=== PATIENT | male | born 1975 | race Caucasian/White ===

== ENCOUNTER 2017-01-09 22:44 | Inpatient (IN) | payer OTHER ==
[~2017-01-09] VITALS: Ht 154.9 cm; Wt 92.0 kg
[2017-01-09 22:49] VITALS: BP 154/96; PULSE 72; RESP 23; TEMP 97.7; O2SAT 99
[2017-01-09] MEDS ORDERED: SODIUM CHLOR 0.9% 1000 ML INJ 1,000 ML IV SCH (22:52)
[2017-01-09 22:56] VITALS: BP 154/96; PULSE 74; RESP 23; TEMP 97.7; O2SAT 100
[2017-01-09 22:59] VITALS: RESP 23; O2SAT 100
[2017-01-09] MEDS ORDERED: SODIUM CHLORIDE 0.9% FLUSH 10 ML FLUSH IVF PRN (23:00)
[2017-01-09] MEDS ORDERED: ceFAZolin 2 GM PREMIX 50 ML IV ONE (23:00)
[2017-01-09] MEDS ORDERED: ONDANSETRON HCL 4 MG/2 ML VIAL IVP ONE (23:00)
[2017-01-09 23:09] LABS: AUTOMATED NEUTROPHIL # 4.7 TH/MM3 (1.8-7.7); BASOPHIL # 0.1 TH/MM3 (0-0.2); BASOPHIL % 0.7 % (0.0-2.0); EOSINOPHIL # 0.9 TH/MM3 (0-0.4); HEMATOCRIT 44.2 % (39.0-51.0); HEMO FLAGS DIFF FINAL; LYMPH % 42.9 % (9.0-44.0); LYMPHOCYTE # 4.9 TH/MM3 (1.0-4.8); MEAN CORPUSCULAR HEMOGLOBIN 30.1 PG (27.0-34.0); MEAN CORPUSCULAR HGB CONC 33.4 % (32.0-36.0); MONO % 7.3 % (0.0-8.0); NEUT % 41.1 % (16.0-70.0); PLATELET COUNT 250 TH/MM3 (150-450); RED BLOOD COUNT 4.92 MIL/MM3 (4.50-5.90); RED CELL DISTRIBUTION WIDTH 12.6 % (11.6-17.2); WHITE BLOOD COUNT 11.3 TH/MM3 (4.0-11.0)
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
[2017-01-09] MEDS ORDERED: LIDOCAINE 2%/EPINEPHrine 1:100,000 30ML MDV INFIL ONE (23:30)
[2017-01-09 23:33] LABS: BICARBONATE 24.1 MEQ/L (21.0-32.0); POTASSIUM 3.4 MEQ/L (3.5-5.1)
[2017-01-09 23:45] VITALS: BP 150/84; PULSE 83; RESP 24; O2SAT 100
[2017-01-10] VITALS (13 sets, daily range): BP systolic 141–175; BP diastolic 74–98; PULSE 60–100; RESP 16–27; TEMP 98.1–98.8; O2SAT 96–100
[2017-01-10] MEDS ORDERED: IOHEXOL 350 MG/ML 10 ML VIAL (for RAD DIAG) IVCONTRAST ONE (00:07)
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
[2017-01-10] MEDS: DIAZEPAM 2 MG TAB PO SCH ×4 (01:15→21:01)
[2017-01-10] MEDS ORDERED: ONDANSETRON HCL 4 MG/2 ML VIAL IV PRN (01:15)
[2017-01-10] MEDS ORDERED: MAGNESIUM HYDROXIDE SUSP 30 ML CUP PO PRN (01:15)
[2017-01-10] MEDS ORDERED: CHLORHEXIDINE GLUCONATE 2 % 1 PACK (2 CLOTHS) TOP PRN (01:15)
[2017-01-10] MEDS ORDERED: SODIUM CHLORIDE 0.9% FLUSH 10 ML FLUSH IV FLUSH PRN (01:15)
[2017-01-10] MEDS ORDERED: MISCELLANEOUS NURSING INFORMATION XX SCH (01:15)
[2017-01-10] MEDS: LACTATED RINGER'S 1000 ML INJ 1,000 ML IV SCH ×3 (01:34→18:20)
[2017-01-10] MEDS: HYDROmorphone HCL PF 1 MG/ML VIAL IV PUSH PRN ×5 (01:35→18:59)
[2017-01-10] MEDS: CHLORHEXIDINE GLUCONATE 2 % 1 PACK (2 CLOTHS) TOP SCH (04:00)
[2017-01-10 05:43] LABS: REVIEW FLAG FINAL
[2017-01-10] MEDS ORDERED: POTASSIUM CHLORIDE 20 MEQ CONTROLLED RELEASE TAB PO ONE (09:45)
[2017-01-10] MEDS: FAMOTIDINE 20 MG TAB PO SCH ×2 (09:59→21:01)
[2017-01-10] MEDS: DOCUSATE SODIUM 100 MG CAP PO SCH ×2 (09:59→21:01)
[2017-01-10] MEDS: LIDOCAINE HCL 5% PATCH T-DERMAL SCH (09:59)
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
[2017-01-10 11:16] LABS: HEMATOCRIT 41.6 % (39.0-51.0); REVIEW FLAG FINAL
[2017-01-10] MEDS ORDERED: MAGN400S PO (12:19)
[2017-01-10] MEDS ORDERED: DOCU1CAP39 PO (12:19)
[2017-01-10] MEDS: BACITRACIN TOP OINT 15 GM TUBE TOPICAL SCH ×2 (14:41→21:00)
[2017-01-10 17:32] LABS: HEMATOCRIT 40.5 % (39.0-51.0); REVIEW FLAG FINAL
[2017-01-10] MEDS: REMOVE OLD LIDOCAINE PATCH T-DERMAL SCH (21:00)
[2017-01-11] VITALS (10 sets, daily range): BP systolic 131–165; BP diastolic 72–100; PULSE 65–96; RESP 15–20; TEMP 98–101.3; O2SAT 94–97
[2017-01-11] MEDS: HYDROmorphone HCL PF 1 MG/ML VIAL IV PUSH PRN (00:25)
[2017-01-11] MEDS: CHLORHEXIDINE GLUCONATE 2 % 1 PACK (2 CLOTHS) TOP SCH (00:33)
[2017-01-11] MEDS: LACTATED RINGER'S 1000 ML INJ 1,000 ML IV SCH ×2 (01:02→08:51)
[2017-01-11] MEDS: DIAZEPAM 2 MG TAB PO SCH ×3 (05:59→22:12)
--- NOTE | 2017-01-11 06:20 | RADRPT ---
EXAM DATE/TIME: 01/11/2017 05:34 [facility] COMPARISON: CHEST SINGLE AP, January 10, 2017, 10:37. INDICATIONS : Evaluate for pneumothorax. MEDICAL HISTORY : None. SURGICAL HISTORY : None. ENCOUNTER: Subsequent ACUITY: 3 days PAIN SCORE: 9/10 LOCATION: Left chest FINDINGS: Multiple left rib fractures are again noted. I don't see a pneumothorax. The chest wall emphysema is decreasing. There is mild consolidation developing of the left lung base. I don't see a large effusio n/hemothorax. Right lung remains clear. Heart size stable, within normal limits. CONCLUSION: 1. Left base consolidation developing. 2. Multiple left rib fractures are again seen. No pneumothorax demonstrated. Samuel Chisholm MD on January 11, 2017 at 6:17 Board Certified Radiologist. This report was verified electronically.
[2017-01-11 07:13] LABS: AUTOMATED NEUTROPHIL # 8.3 TH/MM3 (1.8-7.7); BASOPHIL % 0.2 % (0.0-2.0); EOSINOPHIL % 0.3 % (0.0-4.0); HEMO FLAGS DIFF FINAL; LYMPH % 9.1 % (9.0-44.0); MEAN CELL VOLUME 89.1 FL (80.0-100.0); MEAN CORPUSCULAR HGB CONC 34.7 % (32.0-36.0); MONO % 14.7 % (0.0-8.0); NEUT % 75.7 % (16.0-70.0); PLATELET COUNT 153 TH/MM3 (150-450); RED BLOOD COUNT 4.38 MIL/MM3 (4.50-5.90); RED CELL DISTRIBUTION WIDTH 12.7 % (11.6-17.2); WHITE BLOOD COUNT 10.9 TH/MM3 (4.0-11.0)
[2017-01-11 07:35] LABS: BICARBONATE 27.4 MEQ/L (21.0-32.0); POTASSIUM 3.8 MEQ/L (3.5-5.1)
[2017-01-11] MEDS: LIDOCAINE HCL 5% PATCH T-DERMAL SCH (08:51)
[2017-01-11] MEDS: DOCUSATE SODIUM 100 MG CAP PO SCH ×2 (08:51→20:00)
[2017-01-11] MEDS: BACITRACIN TOP OINT 15 GM TUBE TOPICAL SCH ×2 (08:51→20:02)
[2017-01-11] MEDS: FAMOTIDINE 20 MG TAB PO SCH ×2 (08:51→20:00)
--- NOTE | 2017-01-11 11:00 | HHI.CCPN ---
Subjective 24 Hour Review/Hospital Course 01/11/17 Pain is controlled, nausea resolved. No pneumothorax on chest x-ray and hemothorax remains minimal. Hemoglobin is stable. Will transfer to floor today. Objective Vital Signs Date Time Temp Pulse Resp B/P (MAP) Pulse Ox O2 Delivery O2 Flow Rate FiO2 01/11/17 10:00 91 01/11/17 08:00 98.5 15 139/86 (103) 97 01/11/17 07:00 Nasal Cannula 2.00 Intake and Output 01/11/17 01/11/17 01/12/17 08:00 16:00 00:00 Intake Total 1640 ml 1000 ml Output Total 3000 ml Balance -1360 ml 1000 ml Result Diagram: 01/11/17 0535 01/11/17 0535 Imaging Last 24 hours Impressions Chest X-Ray 01/11/17 0600 Signed Impressions: Service Date/Time: Wednesday, January 11, 2017 05:34 - CONCLUSION: 1. Left base consolidation developing. 2. Multiple left rib fractures are again seen. No pneumothorax demonstrated. Samuel Chisholm MD Exam PROCESS CONTROL TECHNICIAN Alert and oriented, no acute distress Hemodynamic/Cardiac Regular rate and rhythm, stable Pulmonary/Respiratory Clear to auscultation bilaterally, tender left chest wall. Chest x-ray remained stable Abdomen/GI Nutrition Soft, appropriately tender, nondistended Renal/I&O Adequate urine output Hematologic Stable Assessment and Plan Plan Grade 4 splenic laceration remains dynamically stable Transfer to floor today will require continued observation due to high risk of failure of nonoperative management Chest x-ray remained stable with no indication for chest tube placement at this time Continue aggressive pulmonary toilet and pain control Mak Hall MD Jan 11, 2017 11:00
[2017-01-11] MEDS: REMOVE OLD LIDOCAINE PATCH T-DERMAL SCH (20:03)
[2017-01-12] MEDS: LACTATED RINGER'S 1000 ML INJ 1,000 ML IV SCH ×2 (01:02→22:53)
[2017-01-12] MEDS: CHLORHEXIDINE GLUCONATE 2 % 1 PACK (2 CLOTHS) TOP SCH (04:00)
[2017-01-12] MEDS: DIAZEPAM 2 MG TAB PO SCH ×3 (05:55→21:07)
--- NOTE | 2017-01-12 06:20 | RADRPT ---
EXAM DATE/TIME: 01/12/2017 05:15 [facility] COMPARISON: CHEST SINGLE AP, January 11, 2017, 5:34. INDICATIONS : Short of breath. MEDICAL HISTORY : None. SURGICAL HISTORY : None. ENCOUNTER: Subsequent ACUITY: 3 days PAIN SCORE: 0/10 LOCATION: Bilateral chest FINDINGS: Slight progression of left lower lobe airspace disease and probable small pleural effusion. Cardiomed iastinal contours are stable. Redemonstration of multiple left sided rib fractures. CONCLUSION: 1. Slightly more prominent left lower lobe airspace disease and small pleural effusion. 2. Redemonstration of multiple left-sided rib fractures. No significant pneumothorax. Nakul Licona MD on January 12, 2017 at 6:17 Board Certified Radiologist. This report was verified electronically.
[2017-01-12 07:42] VITALS: BP 134/84; PULSE 84; RESP 17; TEMP 99.4; O2SAT 95
[2017-01-12 08:16] LABS: AUTOMATED NEUTROPHIL # 7.4 TH/MM3 (1.8-7.7); BASOPHIL # 0.2 TH/MM3 (0-0.2); BASOPHIL % 2.1 % (0.0-2.0); EOSINOPHIL % 0.4 % (0.0-4.0); HEMATOCRIT 40.4 % (39.0-51.0); HEMO FLAGS DIFF FINAL; LYMPH % 12.7 % (9.0-44.0); LYMPHOCYTE # 1.3 TH/MM3 (1.0-4.8); MEAN CELL VOLUME 88.5 FL (80.0-100.0); MEAN CORPUSCULAR HEMOGLOBIN 31.3 PG (27.0-34.0); MEAN CORPUSCULAR HGB CONC 35.3 % (32.0-36.0); MONO % 12.6 % (0.0-8.0); NEUT % 72.2 % (16.0-70.0); PLATELET COUNT 149 TH/MM3 (150-450); RED BLOOD COUNT 4.57 MIL/MM3 (4.50-5.90); RED CELL DISTRIBUTION WIDTH 12.7 % (11.6-17.2); WHITE BLOOD COUNT 10.3 TH/MM3 (4.0-11.0)
[2017-01-12] MEDS: LIDOCAINE HCL 5% PATCH T-DERMAL SCH (08:39)
[2017-01-12 08:40] LABS: ANION GAP 6 MEQ/L (5-15); AST (GOT) 18 U/L (15-37); BICARBONATE 29.1 MEQ/L (21.0-32.0); BLOOD UREA NITROGEN 10 MG/DL (7-18); CHLORIDE 100 MEQ/L (98-107); GLOMERULAR FILTRATION RATE 123 ML/MIN (>89); POTASSIUM 3.9 MEQ/L (3.5-5.1); SODIUM (NA) 135 MEQ/L (136-145)
[2017-01-12 08:41] LABS: ALT (GPT) 28 U/L (12-78)
[2017-01-12] MEDS: DOCUSATE SODIUM 100 MG CAP PO SCH ×2 (08:41→21:07)
[2017-01-12] MEDS: FAMOTIDINE 20 MG TAB PO SCH ×2 (08:42→21:07)
[2017-01-12] MEDS: BACITRACIN TOP OINT 15 GM TUBE TOPICAL SCH ×2 (08:42→21:13)
[2017-01-12] MEDS: LACTULOSE SYRUP 20 GM/30 ML CUP PO SCH (08:42)
[2017-01-12 08:43] LABS: ALKALINE PHOSPHATASE 59 U/L (45-117)
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
[2017-01-12 11:49] VITALS: BP 135/95; PULSE 104; RESP 17; TEMP 99.3; O2SAT 96
[2017-01-12] MEDS: HYDROmorphone HCL PF 1 MG/ML VIAL IV PUSH PRN (12:28)
[2017-01-12 15:52] VITALS: BP 136/94; PULSE 119; RESP 17; TEMP 99.5; O2SAT 92
[2017-01-12 20:00] VITALS: BP 130/91; PULSE 73; RESP 18; TEMP 99.2; O2SAT 98
[2017-01-12] MEDS: REMOVE OLD LIDOCAINE PATCH T-DERMAL SCH (21:13)
[2017-01-13 00:05] VITALS: BP 135/83; PULSE 81; RESP 18; TEMP 98.8; O2SAT 99
[2017-01-13] MEDS: CHLORHEXIDINE GLUCONATE 2 % 1 PACK (2 CLOTHS) TOP SCH (01:55)
[2017-01-13] MEDS: DIAZEPAM 2 MG TAB PO SCH ×2 (05:46→14:00)
[2017-01-13 06:06] LABS: AUTOMATED NEUTROPHIL # 5.1 TH/MM3 (1.8-7.7); BASOPHIL % 0.4 % (0.0-2.0); EOSINOPHIL # 0.2 TH/MM3 (0-0.4); HEMATOCRIT 40.3 % (39.0-51.0); HEMO FLAGS DIFF FINAL; LYMPH % 17.4 % (9.0-44.0); LYMPHOCYTE # 1.4 TH/MM3 (1.0-4.8); MEAN CELL VOLUME 88.9 FL (80.0-100.0); MEAN CORPUSCULAR HEMOGLOBIN 30.5 PG (27.0-34.0); MEAN CORPUSCULAR HGB CONC 34.3 % (32.0-36.0); MONO % 14.7 % (0.0-8.0); NEUT % 64.5 % (16.0-70.0); PLATELET COUNT 174 TH/MM3 (150-450); RED BLOOD COUNT 4.54 MIL/MM3 (4.50-5.90); RED CELL DISTRIBUTION WIDTH 12.8 % (11.6-17.2)
[2017-01-13 06:33] LABS: ANION GAP 9 MEQ/L (5-15); AST (GOT) 24 U/L (15-37); BICARBONATE 27.5 MEQ/L (21.0-32.0); BLOOD UREA NITROGEN 12 MG/DL (7-18); CHLORIDE 98 MEQ/L (98-107); GLOMERULAR FILTRATION RATE 136 ML/MIN (>89); POTASSIUM 3.8 MEQ/L (3.5-5.1); SODIUM (NA) 134 MEQ/L (136-145)
[2017-01-13 06:34] LABS: ALT (GPT) 38 U/L (12-78)
[2017-01-13 06:36] LABS: ALKALINE PHOSPHATASE 63 U/L (45-117); TOTAL BILIRUBIN ADULT 1.1 MG/DL (0.2-1.0)
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
[2017-01-13] MEDS ORDERED: WALKER WHEELS/F1 MIS (07:30)
[2017-01-13 08:00] VITALS: BP 126/78; PULSE 95; RESP 18; TEMP 98.1; O2SAT 95
[2017-01-13] MEDS: DOCUSATE SODIUM 100 MG CAP PO SCH (08:27)
[2017-01-13] MEDS: FAMOTIDINE 20 MG TAB PO SCH (08:27)
[2017-01-13] MEDS: LACTULOSE SYRUP 20 GM/30 ML CUP PO SCH (08:27)
[2017-01-13] MEDS: LIDOCAINE HCL 5% PATCH T-DERMAL SCH (08:28)
[2017-01-13] MEDS: LACTATED RINGER'S 1000 ML INJ 1,000 ML IV SCH (09:02)
[2017-01-13] MEDS: BACITRACIN TOP OINT 15 GM TUBE TOPICAL SCH (09:25)
[2017-01-13 11:51] VITALS: BP 137/94; PULSE 84; RESP 18; TEMP 99.2; O2SAT 96
[2017-01-13] MEDS ORDERED: PERC5TAB12 PO (11:52)
[2017-01-13] MEDS ORDERED: ROBA500T PO (11:52)
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
== END 2017-01-13 16:10 | disposition home or self-care (01) | DRG 964 ==
LOC: NEPE 22:44 → NEDA 01-10 00:45 → N03B 01-10 03:56 → N06A 01-11 11:03
PROVIDERS: ADMIT Surgery; ATTEND Surgery
PROC: 0HQ1XZZ Repair Face Skin, External Approach (ICD-10-PCS; principal; 2017-01-09)
DX: S27.2XXA Traumatic hemopneumothorax, initial encounter (principal); S22.42XA Multiple fractures of ribs, left side, initial encounter for closed fracture; S37.812A Contusion of adrenal gland, initial encounter; S36.039A Unspecified laceration of spleen, initial encounter; S01.81XA Laceration without foreign body of other part of head, initial encounter; S00.81XA Abrasion of other part of head, initial encounter; V29.88XA Motorcycle rider (driver) (passenger) injured in other specified transport accidents, initial encounter; Y92.410 Unspecified street and highway as the place of occurrence of the external cause
CPT/HCPCS: 12013; 51702; 70450; 71010; 71260; 72125; 74177; 80048; 80053; 80307; 85014; 85018; 85025; 87641; 94150; 94640; 94667; 94668; 96365; 96375; J0690; J1170; J2405; J7030; J7120; Q9967

== ENCOUNTER 2018-04-18 00:11 | Inpatient (IN) ==
[2018-04-18] MEDS ORDERED: Morphine Inj 4 MG/ML Vial IV.PUSH ONE (00:27)
[2018-04-18] MEDS ORDERED: ceFAZolin 2 GM Premix Inj 2 GM/50 ML PIGGYBACK IV.SIG ONE (00:27)
[2018-04-18] MEDS ORDERED: Diphtheria/Tetanus/Pertussis Vaccine Inj 0.5 ML Syringe IM ONE (00:27)
[2018-04-18] MEDS ORDERED: Sod Chloride 0.9% Inj 1,000 ML IV.CONT SCH (00:30)
[2018-04-18 00:55] LABS: Baso % (Auto) 0.4 % (0.0-2.0); Eos # (Auto) 0.7 th/mm3 (0.0-0.4); Eos % (Auto) 7.6 % (0.0-4.0); Hematocrit 44.1 % (39.0-51.0); Hemoglobin 15.4 gm/dL (13.0-17.0); Lymph # (Auto) 2.1 th/mm3 (1.0-4.8); Lymph % (Auto) 21.9 % (9.0-44.0); Mean Corpuscular HGB Conc 34.9 % (32.0-36.0); Mean Corpuscular Volume 88.9 fL (80.0-100.0); Mean Platelet Volume 8.6 fL (7.0-11.0); Mono # (Auto) 0.6 th/mm3 (0.0-0.9); Mono % (Auto) 6.6 % (0.0-8.0); Neut # (Auto) 6.2 th/mm3 (1.8-7.7); Neut % (Auto) 63.5 % (16.0-70.0); Platelet Count 248 th/mm3 (150-450); Red Blood Count 4.96 mil/mm3 (4.50-5.90); White Blood Count 9.7 th/mm3 (4.0-11.0)
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
[2018-04-18 01:04] LABS: Activated Partial Thrombo Time 23.6 sec (23.4-31.7)
[2018-04-18 01:07] LABS: Calcium 8.2 mg/dL (8.5-10.1); Carbon Dioxide 25.3 meq/L (21.0-32.0); Potassium 3.8 meq/L (3.5-5.1)
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
[2018-04-18] MEDS ORDERED: ceFAZolin 1 GM Premix Inj 2 GM/100 ML PIGGYBACK IV.SIG ONE (02:27)
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
[2018-04-18 03:47] LABS: Bilirubin,Urine Negative (Negative); Clarity,Urine Clear (Clear); Color,Urine Straw (Yellw/Straw); Glucose,Urine (UA) Negative (Negative); Hyaline Casts,Urine 3 /lpf (0-3); Leukocyte Esterase,Urine Negative (Negative); Mucus,Urine Few /lpf (Occasional); Nitrite,Urine Negative (Negative); Specific Gravity,Urine 1.008 (1.002-1.035); Squamous Epithelial Cell,Urine <1 /hpf (0-5)
[2018-04-18 03:50] LABS: Amphetamine Screen,Urine Neg (Neg); Barbiturate Screen,Urine Neg (Neg); Cannabinoid Screen,Urine Pos (Neg); Cocaine Screen,Urine Neg (Neg)
[2018-04-18 04:00] LABS: Opiate Screen,Urine Neg (Neg)
[2018-04-18] MEDS ORDERED: LORazepam 1 MG Tablet PO PRN (04:01)
[2018-04-18] MEDS ORDERED: Haloperidol Inj 5 MG/ML Ampul IV.PUSH PRN (04:01)
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
[2018-04-18] MEDS ORDERED: Bisacodyl 10 MG Supp RECTAL PRN (04:02)
[2018-04-18] MEDS ORDERED: Acetaminophen 325 MG Tablet PO PRN (04:02)
[2018-04-18] MEDS: Sod Chloride 0.9% Inj 1,000 ML IV.CONT SCH ×2 (04:58→19:33)
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
[2018-04-18] MEDS ORDERED: Chlorhexidine Gluconate 2% 1 Pack (2 Cloths) TOPICAL ONE (09:01)
[2018-04-18] MEDS ORDERED: Metoprolol Tartrate 25 MG Tablet PO ONE (09:01)
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
[2018-04-18] MEDS ORDERED: Sodium Chlor 0.9% Inj 500 ML IV.SIG ONE (10:00)
[2018-04-18] MEDS ORDERED: Sugammadex Inj 200 MG/2 ML Vial IV.PUSH ONE (10:23)
[2018-04-18] MEDS ORDERED: Tobramycin Sulfate 1,200 MG Vial (for ortho/sterile core) OTHER ONE (10:59)
[2018-04-18] MEDS ORDERED: Post-op Orders (for Pharmacy) OTHER STA (11:44)
[2018-04-18] MEDS ORDERED: Morphine Inj 4 MG/ML Vial IV.PUSH PRN (11:44)
--- NOTE | 2018-04-18 11:55 | P.OP ---
- Preoperative Diagnosis (1) Fracture of radial head, left, closed (2) Open fracture of olecranon process of left ulna with intraarticular extension (3) Elbow fracture, left Date of procedure: 04/18/18 Procedure: Irrigation and debridement of open olecranon fracture, open reduction internal fixation comminuted intra-articular left olecranon fracture, open treatment of left radial head fracture with radial head replacement Anesthesia: GETA Surgeon: Fahad Dean MD Teacher Physically Impaired: Richar Telles PA-C The surgical procedure was assisted by my physician physical therapy assistant. My P.A. presence was necessary throughout this case for the manipulation and positioning of the surgical extremity. My P.A. was assisting me throughout the duration of this procedure. The skill set of a physician physical therapy assistant was medically necessary to complete this procedure. During the surgical case the home appliance technician was working at the back table and the physician physical therapy assistant was directly assisting me. Operation and Findings: Implants used: Synthes olecranon plate, skeletal dynamics radial head replacement Plan of activity: Nonweightbearing left arm, start gentle range of motion in 2 weeks Details of procedure: Angelo was seen and evaluated preoperatively. Patient was found to have a severely comminuted displaced intra-articular olecranon fracture with comminuted radial head fracture. The risk and benefits of the surgery were discussed in depth and informed consent was obtained. Risk of surgery include bleeding, infection, painful hardware, wound, case, elbow stiffness, loss of motion, elbow arthritis, injuries to arteries nerves or blood vessels, weakness and numbness of hand, as well as medical complications associated with general anesthesia. All questions were answered. Patient was brought to operating room. IV sedation and anesthesia were administered. Patient was placed into a lateral decubitus position. Timeout procedure was performed. IV antibiotics were administered prior to incision. The operative arm was prepped with alcohol followed by Hibiclens and draped in usual sterile fashion. Procedure began with a 7 inch incision over the olecranon. Subcutaneous tissue dissected with Bovie. Fracture site was visualized. Fascia was elevated around the fracture site. There was severe comminution of the fracture site. The radial head fragments were identified. The radial head was in for fragments which were completely displaced from the radial shaft. These fragments were excised. There is significant osteochondral injury to the radial head, olecranon, and the distal humerus. At this point the proximal ulna was reconstructed. There are multiple osteochondral fragments. Fracture fragments were gently manipulated. A fracture tenaculum was used to aid in reduction. Multiple K wires result provisional fixation. Once the articular surface was reconstructed, A Synthes proximal plate was selected. Plate was provisionally held with K wires 3.5 cortical screws were used to compress plate to bone. Multiple cortical screws were placed in the ulna shaft. Multiple locking screws were placed in the proximal ulna. All screws were predrilled and premeasured for appropriate length. K wires were removed. Final fluoroscopy revealed excellent of fractures well-placed hardware. Articular surface appeared to be in near anatomic alignment. Wound was now thoroughly irrigated. Next attention was turned to the radial head. The radial neck was now exposed through a separate lateral fascial incision. Soft tissue was protected. An oscillating saw was used to cut the radial neck at appropriate position. Care was taken to avoid injury to neurovascular structures. The radial head was measured and found to be size 24. The [employer] dynamics radial head system was utilized. The proximal radius was now broached up to size 11. This is found to be an excellent fit. A trial head and neck were placed. The elbow was placed through range of motion. Patient had full flexion and extension. Trial components were now removed. A size 11 radial head stem was now impacted into the proximal radius. The 24 head with +2 neck were now placed onto the stem. Using the version guide the version of the radial head was placed in line with the axis of rotation of the forearm. The set screw was now tightened to lock the radial head in place. Final fluoroscopy revealed excellent alignment of hardware with well-placed radial head. There was a defect in the metaphyseal region of the ulna. 5 cc of biosphere graft was placed into this defect. Incision was now closed with #1 Vicryl, 3-0 Vicryl, and nataly. Sterile dressings were applied. Patient's placed a well molded well-padded splint. Patient was transferred to recovery in stable condition.
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
--- NOTE | 2018-04-18 12:45 | XR ---
EXAM DATE: 04/18/2018 12:41 PM EST AGE/SEX: 43 years / Male INDICATIONS: ORIF left ulna and radial head fracture. CLINICAL DATA: This is the patient's subsequent encounter. Patient reports that signs and symptoms h ave been present for 1 day and indicates a pain score of Nonresponsive. MEDICAL/SURGICAL HISTORY: Non-responsive. Non-responsive. COMPARISON: [facility] – [place] 2V, 04/18/2018. . FINDINGS: Plate with screws is seen bridging the severely comminuted fracture of the olecranon. Alignment appea rs anatomic in the lateral projection.. CONCLUSION: Anatomic alignment lateral projection. Electronically signed by: Cody Haynes MD 04/18/2018 12:43 PM EST
[2018-04-18] MEDS ORDERED: fentaNYL Citrate Inj 100 MCG/2 ML Ampul ONE (12:56)
[2018-04-18] MEDS: Calcium/Vitamin D 250/125 MG Tablet PO SCH ×2 (13:00→17:41)
[2018-04-18] MEDS ORDERED: Morphine Sulfate Inj 2 MG/ML Vial ONE ×2 (13:12→13:22)
[2018-04-18] MEDS: ceFAZolin 2 GM Premix Inj 2 GM/50 ML PIGGYBACK IV.SIG SCH ×2 (15:15→23:50)
[2018-04-18] MEDS: Gentamicin/NS 80 mg Premix 100 ML IV.SIG SCH (17:42)
--- NOTE | 2018-04-18 18:46 | ECG ---
Date Performed: 04/18/2018 Time Performed: 02:38:42 PTAGE: 43 years EKG: SINUS TACHYCARDIA BORDERLINE LEFT AXIS DEVIATION ABNORMAL RHYTHM ECG NO PREVIOUS TRACING DOCTOR: William Estrada Interpretating Date/Time 04/18/2018 18:44:42
[2018-04-18] MEDS: Senna/Docusate Sodium 8.6/50 MG Tablet PO SCH (22:43)
[2018-04-19] MEDS: Sod Chloride 0.9% Inj 1,000 ML IV.CONT SCH ×2 (01:09→12:40)
[2018-04-19] MEDS: Gentamicin/NS 80 mg Premix 100 ML IV.SIG SCH ×3 (02:50→17:26)
[2018-04-19 05:33] LABS: Baso % (Auto) 0.2 % (0.0-2.0); Eos % (Auto) 0.1 % (0.0-4.0); Hematocrit 39.1 % (39.0-51.0); Hemoglobin 13.9 gm/dL (13.0-17.0); Lymph # (Auto) 1.5 th/mm3 (1.0-4.8); Lymph % (Auto) 13.5 % (9.0-44.0); Mean Corpuscular HGB Conc 35.5 % (32.0-36.0); Mean Corpuscular Hemoglobin 31.2 pg (27.0-34.0); Mean Corpuscular Volume 87.8 fL (80.0-100.0); Mean Platelet Volume 8.7 fL (7.0-11.0); Mono # (Auto) 1.4 th/mm3 (0.0-0.9); Mono % (Auto) 12.8 % (0.0-8.0); Neut # (Auto) 8.3 th/mm3 (1.8-7.7); Neut % (Auto) 73.4 % (16.0-70.0); Platelet Count 243 th/mm3 (150-450); Red Blood Count 4.45 mil/mm3 (4.50-5.90); Red Cell Distribution Width 13.2 % (11.6-17.2); White Blood Count 11.3 th/mm3 (4.0-11.0)
[2018-04-19 06:04] LABS: Alanine Aminotransferase 25 U/L (12-78); Albumin 3.6 g/dL (3.4-5.0); Anion Gap 6 meq/L (5-15); Aspartate Aminotransferase 16 U/L (15-37); Blood Urea Nitrogen 12 mg/dL (7-18); Calcium 8.6 mg/dL (8.5-10.1); Carbon Dioxide 27.4 meq/L (21.0-32.0); Chloride 104 meq/L (98-107); Glomerular Filtration Rate Greater Than 89 mL/min (>89); Glucose,Random 117 mg/dL (74-106); Potassium 4.3 meq/L (3.5-5.1); Sodium 137 meq/L (136-145)
[2018-04-19 06:07] LABS: Alkaline Phosphatase 64 U/L (45-117)
--- NOTE | 2018-04-19 06:28 | P.PNOP ---
Subjective Interval history: Resting in bed comfortably with no new complaints Physical Exam Vital signs: Vital Signs 04/18/18 08:00 04/18/18 12:00 04/18/18 12:15 Temperature 98.5 F 98.0 F Pulse Rate 117 H 100 H 109 H Respiratory Rate 16 15 15 Blood Pressure 151/98 H 171/98 H 146/95 H Pulse Oximetry 96 96 92 L 04/18/18 12:30 04/18/18 12:45 04/18/18 13:00 Temperature Pulse Rate 106 H 112 H 110 H Respiratory Rate 18 17 18 Blood Pressure 159/95 H 160/95 H 157/98 H Pulse Oximetry 93 L 95 95 04/18/18 13:09 04/18/18 13:28 04/18/18 16:00 Temperature 97.5 F L 99.9 F H Pulse Rate 110 H 105 H 118 H Respiratory Rate 16 15 18 Blood Pressure 157/98 H 154/92 H 152/99 H Pulse Oximetry 95 97 95 04/18/18 19:30 04/18/18 23:31 04/19/18 03:34 Temperature 98.7 F 98 F 97.2 F L Pulse Rate 108 H 101 H 78 Respiratory Rate 19 18 17 Blood Pressure 153/98 H 148/93 H 150/91 H Pulse Oximetry 96 98 95 Intake & Output 04/18/18 04/18/18 04/19/18 06:59 18:59 06:59 Intake Total 1050 / 1050 1550 / 1550 1150 / 1150 Output Total 700 / 700 200 / 200 700 / 700 Balance 350 / 350 1350 / 1350 450 / 450 Weight 101.9 kg Intake: IV 1050 / 1050 150 / 150 1150 / 1150 NS Inj 1,000 ML @ 100 mls/hr IV 1000 / 1000 1000 / 1000 .CONT .Q10H KENNETH Rx#:[id number] Gentamicin/NS 80 mg Premix 100 100 / 100 100 / 100 ML @ 200 mls/hr IV.SIG Q8H KENNETH Rx#:[id number] Ancef 2 GM Premix Inj 2 gm In 50 / 50 50 / 50 50 / 50 50 ml @ 200 mls/hr IV.SIG Q8H KENNETH Rx#:[id number] Oral 0 / 0 Anesthesia Amount 1400 / 1400 Output: Urine 700 / 700 700 / 700 Estimated Blood Loss 200 / 200 Other: Date of Last Bowel Movement 04/17/18 # Bowel Movements 0 Weight On Admission 95.25 kg Narrative: Left upper extremity: Splint clean dry and intact. Distally intact sensation good further refills. He has full extension and flexion of all fingers Results - Labs CBC & Chem 7: 04/19/18 05:12 04/19/18 05:12 Laboratory Results - last 24 hr 04/19/18 04/19/18 05:12 05:12 WBC 11.3 H RBC 4.45 L Hgb 13.9 Hct 39.1 MCV 87.8 MCH 31.2 MCHC 35.5 RDW 13.2 Plt Count 243 MPV 8.7 Neut % (Auto) 73.4 H Lymph % (Auto) 13.5 [place] % (Auto) 12.8 H Eos % (Auto) 0.1 Baso % (Auto) 0.2 Neut # (Auto) 8.3 H Lymph # (Auto) 1.5 [place] # (Auto) 1.4 H Eos # (Auto) 0.0 Baso # (Auto) 0.0 WBC Differential . Differential Comment Auto diff final Sodium 137 Potassium 4.3 Chloride 104 Carbon Dioxide 27.4 Anion Gap 6 BUN 12 Creatinine 0.78 Estimated GFR Greater than 89 Random Glucose 117 H Calcium 8.6 Total Bilirubin 0.6 AST 16 ALT 25 Alkaline Phosphatase 64 Total Protein 7.0 Albumin 3.6 - Imaging Impressions Elbow CT 04/18/18 00:00 CONCLUSION: 1. Severely comminuted open fracture of the olecranon with fragmentation of the articular surface and intra-articular air. 2. The radial head is aligned with the capitellum. 3. Small avulsion fragment medial humeral epicondyles. Elbow X-Ray 04/18/18 00:00 CONCLUSION: Anatomic alignment lateral projection. Assessment and Plan - Assessment and Plan Left olecranon ORIF and radial head replacement POD 1 with irrigation debridement Maintain splint Nonweightbearing left upper extremity Sling when out of bed May be discharged this evening after evening dose of antibiotics Follow-up appointment Dr. Perez or PA in 2 weeks
[2018-04-19] MEDS: ceFAZolin 2 GM Premix Inj 2 GM/50 ML PIGGYBACK IV.SIG SCH ×2 (06:30→15:49)
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
[2018-04-19] MEDS ORDERED: amLODIPine 5 MG Tablet PO SCH (09:00)
[2018-04-19] MEDS: Calcium/Vitamin D 250/125 MG Tablet PO SCH ×3 (09:02→17:27)
[2018-04-19] MEDS: Senna/Docusate Sodium 8.6/50 MG Tablet PO SCH (09:02)
== END 2018-04-19 17:31 | disposition home or self-care (01) ==
LOC: NEPC 00:11 → NEDA 03:48 → N06 04:50
PROVIDERS: ADMIT Internal Medicine; ATTEND Internal Medicine